=== PATIENT | female | born 1955 | race Asian ===

== ENCOUNTER 2021-06-18 07:52 | Day surgery (SDC) | payer OTHER, MEDICARE ==
[2021-06-16 16:28] VITALS: BMI 24.3
[2021-06-18 10:05] VITALS: TEMP 97.8
[2021-06-18 10:19] VITALS: BP 160/70; PULSE 50
== END 2021-06-18 10:27 | disposition home or self-care (01) ==
LOC: FASU-ENDO 07:52
PROVIDERS: ATTEND Internal Medicine Gastroenterology
PROC: 0DJD8ZZ Inspection of Lower Intestinal Tract, Via Natural or Artificial Opening Endoscopic (ICD-10-PCS; principal; 2021-06-18 09:30)
DX: Z12.11 Encounter for screening for malignant neoplasm of colon (principal); K57.30 Diverticulosis of large intestine without perforation or abscess without bleeding; K64.0 First degree hemorrhoids
CPT/HCPCS: 82962